=== PATIENT | male | born 1935 | race Caucasian/White ===

== ENCOUNTER 2020-04-21 16:59 | Emergency (ER) | payer OTHER ==
[~2020-04-21] VITALS: Ht 185.4 cm; Wt 79.4 kg
--- NOTE | ~2020-04-21 | EKG ---
[facility] [address] [place] [address] ELECTROCARDIOGRAM REPORT Name: ACE CORNELIUS Room #: PRE M.R.#: [id number] Admission: Attend Phys: Discharge: Date of : 39 Report #: [id number] THIS REPORT FOR: cc: Syed Lynch MD ~ THIS REPORT FOR: //name// [facility] ED Test Date: 2020-04-21 Test Time: 17:04:14 Pat Name: ACE CORNELIUS Department: Room: Gender: M [employer]: GABRIELE : 1935 Requested By: Bibi Ho Order Number: [id number] MD: Measurements Intervals [place] Rate: 66 P: 58 [place]: 196 QRS: 10 QRSD: 106 T: 12 QT: 402 QTc: 422 Interpretive Statements Sinus rhythm RSR' in V1 or V2, right VCD or RVH No previous ECG available for comparison [email or web address] By: 03 03 Syed Lynch MD /EPI
[2020-04-21 17:57] LABS: HEMATOCRIT 39.4 % (42.0-52.0); HEMOGLOBIN 12.9 gm/dL (14.0-18.0); MCHC 32.6 g/dL (28.0-37.0); MCV 91.9 fL (80.0-100.0); PLATELET COUNT 307 thou/uL (150-400); RBC 4.29 mil/uL (4.50-6.00); RDW 13.8 % (10.5-14.5); WBC 7.2 thou/uL (4.0-11.0)
[2020-04-21] MEDS ORDERED: LEVO-T50 MCG PO (18:02)
[2020-04-21 18:03] LABS: ANION GAP 4 mmol/L (7-16); BUN 19 mg/dL (7-18); CALCIUM 8.4 mg/dL (8.5-10.1); CHLORIDE 104 mmol/L (98-107); CO2 28 mmol/L (21-32); CREATININE 0.9 mg/dL (0.7-1.3); GLUCOSE 74 mg/dL (74-106); POTASSIUM 3.9 mmol/L (3.5-5.1); SODIUM 136 mmol/L (136-145)
[2020-04-21] MEDS ORDERED: ADULT ASPIRIN R81 MG PO (18:03)
[2020-04-21] MEDS ORDERED: NEURONTIN100 MG PO (18:03)
[2020-04-21] MEDS ORDERED: FLOMAX0.4 MG PO (18:03)
[2020-04-21 18:15] LABS: ALBUMIN 2.8 g/dL (3.4-5.0); SGOT 20 U/L (15-37); SGPT 17 U/L (30-65); TOTAL BILIRUBIN 0.4 mg/dL (0.2-1.0); TOTAL PROTEIN 6.6 g/dL (6.4-8.2); TROPONIN-I <0.06 ng/mL (<0.06)
[2020-04-21 18:25] LABS: ABSOLUTE NEUTROPHILS 3.5 thou/uL (1.4-8.2)
[2020-04-21 18:26] LABS: ANISOCYTOSIS 1+
[2020-04-21 19:48] VITALS: BP 128/80
== END 2020-04-21 19:45 | disposition home or self-care (01) ==
LOC: ER 16:59
PROVIDERS: Physician Assistant
DX: R07.89 Other chest pain (principal); Z20.828 Contact with and (suspected) exposure to other viral communicable diseases; R05 Cough; J30.89 Other allergic rhinitis; I48.91 Unspecified atrial fibrillation; Z79.82 Long term (current) use of aspirin; Z79.899 Other long term (current) drug therapy

== ENCOUNTER → 2020-06-30 | Outpatient (CLI) | payer OTHER ==
[~2020-06-30] MED LIST: ADULT ASPIRIN R81 MG PO; FLOMAX0.4 MG PO; LEVO-T50 MCG PO; NEURONTIN100 MG PO
== END ==
LOC: RAD 12:11
PROVIDERS: ATTEND Internal Medicine
DX: M43.16 Spondylolisthesis, lumbar region (principal); M19.042 Primary osteoarthritis, left hand; M19.041 Primary osteoarthritis, right hand; M47.817 Spondylosis without myelopathy or radiculopathy, lumbosacral region; M51.27 Other intervertebral disc displacement, lumbosacral region; M48.07 Spinal stenosis, lumbosacral region

== ENCOUNTER → 2020-08-26 | Outpatient (CLI) | payer OTHER | LOC: LAB 08:27 | PROVIDERS: ATTEND Anesthesiology | DX: Z01.812 Encounter for preprocedural laboratory examination (principal); Z20.828 Contact with and (suspected) exposure to other viral communicable diseases ==